=== PATIENT | male | born 1980 | race Caucasian/White ===

== ENCOUNTER → 2016-11-06 | Outpatient (CLI) | payer OTHER ==
[~2016-11-06] MED LIST: ADIPEX-P37.5 MG PO; CIPROFLOXACIN500 M2 PO; FLOMAX 0.4MG C0.4 MG PO; HYDROCODONE/ACE1 TA5 PO; PYRIDIUM 200MG200 MG PO; ZOFRAN4 MG PO
== END ==
LOC: LAB 08:24
DX: E78.4 Other hyperlipidemia (principal)